=== PATIENT | female | born 1965 | race Two or more races ===

== ENCOUNTER 2017-08-20 11:17 | Emergency (ER) | payer MEDICARE, MEDICAID ==
--- NOTE | 2017-08-20 12:21 | RAD ---
HISTORY: Chest pressure, cough COMPARISONS: August 10, 2015 VIEWS: 4: Frontal dual-energy and lateral views of the chest. FINDINGS: CARDIOMEDIASTINAL SILHOUETTE: The cardiomediastinal silhouette is normal. MICHELLE: The michelle are normal. PLEURA: The costophrenic angles are sharp. No pleural abnormalities are noted. LUNG PARENCHYMA: The lungs are clear. ABDOMEN: The upper abdomen is clear. There is no subphrenic gas. BONES AND SOFT TISSUES: No bone or soft tissue abnormalities are noted. OTHER: None. IMPRESSION: NO ACTIVE CARDIOPULMONARY DISEASE.
[2017-08-20 13:41] LABS: Hematocrit 39 % (35-47); Hemoglobin 12.7 g/dl (12.0-16.0); Mean Corpuscular HGB Conc 33 g/dl (31-36); Mean Corpuscular Hemoglobin 26 pg (27-31); Mean Corpuscular Volume 80 fL (80-97); Mean Platelet Volume 8 um3 (7.4-10.4); Red Blood Count 4.87 10^6/ul (4.0-5.4); Red Cell Distribution Width 15 % (10.5-15); White Blood Count 6.1 10^3/ul (3.5-10.8)
[2017-08-20 13:45] LABS: Albumin 4.1 g/dL (3.2-5.2); BUN/Creatinine Ratio 16.9 (8-20); Calcium 9.6 mg/dL (8.6-10.3); EGFR African American 110.3 (>60); EGFR Non-African American 85.8 (>60); Globulin 3.3 g/dL (2-4); Potassium 4.2 mmol/L (3.5-5.0); Total Bilirubin 0.4 mg/dL (0.2-1.0); Total Protein 7.4 g/dL (6.4-8.9)
[2017-08-20] MEDS ORDERED: Albuterol HFA INHALER* 8 gm MDI INH ONE (14:19)
[2017-08-20 14:33] VITALS: BP 119/68
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
== END 2017-08-20 14:33 | disposition home or self-care (01) ==
LOC: ED 11:17
DX: J40 Bronchitis, not specified as acute or chronic (principal); M79.7 Fibromyalgia; M19.90 Unspecified osteoarthritis, unspecified site; J45.909 Unspecified asthma, uncomplicated
CPT/HCPCS: 36415; 71020; 80053; 85025; 93005; 99282